=== PATIENT | female | born 1975 | race Caucasian/White ===

== ENCOUNTER 2016-10-22 23:33 | Inpatient (IN) | payer MEDICAID, OTHER ==
[~2016-10-22] VITALS: Ht 175.3 cm; Wt 84.1 kg
[2016-10-23 00:06] LABS: GLUCOSE,POINT OF CARE 95 MG/DL (70-110)
[2016-10-23] MEDS ORDERED: LORazepam 2 MG TABLET PO ONE (00:30)
[2016-10-23 12:14] VITALS: BP 148/93
[2016-10-23] MEDS ORDERED: INFLUENZA VIRUS VACCINE QVS 2016-17 (3YR+)/PF 60 MCG/0.5 ML SYRINGE IM ONE (13:00)
[2016-10-23] MEDS ORDERED: PNEUMOCOCCAL VACCINE POLYVALENT 0.5 ML VIAL [PPSV23] IM ONE (13:00)
[2016-10-23] MEDS: BACITRACIN 28.4 GM OINTMENT TP SCH (18:30)
[2016-10-23] MEDS ORDERED: ACETAMINOPHEN 325 MG TABLET PO PRN (21:30)
[2016-10-24 08:25] VITALS: BP 147/78
[2016-10-24] MEDS: BACITRACIN 28.4 GM OINTMENT TP SCH ×2 (09:03→16:04)
[2016-10-24] MEDS ORDERED: ACETAMINOPHEN 325 MG TABLET PO PRN ×2 (13:00)
[2016-10-24] MEDS ORDERED: IBUPROFEN 400 MG TABLET PO PRN (13:00)
[2016-10-24] MEDS: LORazepam 2 MG TABLET PO PRN (16:04)
[2016-10-25] MEDS: AmLODIPine BESYLATE 2.5 MG TABLET PO SCH (08:52)
[2016-10-25] MEDS: LORazepam 2 MG TABLET PO PRN ×2 (08:52→18:38)
[2016-10-25] MEDS: BACITRACIN 28.4 GM OINTMENT TP SCH ×2 (08:52→16:02)
[2016-10-25 16:03] VITALS: BP 139/82
[2016-10-25] MEDS: RisperiDONE 2 MG TABLET PO SCH (19:45)
[2016-10-25] MEDS: DIVALPROEX SODIUM 500 MG DR TABLET PO SCH (20:09)
[2016-10-25] MEDS: ZOLPIDEM TARTRATE 10 MG TABLET PO PRN (21:02)
[2016-10-26 08:06] VITALS: BP 118/72
[2016-10-26] MEDS: RisperiDONE 2 MG TABLET PO SCH (09:00)
[2016-10-26] MEDS: AmLODIPine BESYLATE 2.5 MG TABLET PO SCH (09:00)
[2016-10-26] MEDS: BACITRACIN 28.4 GM OINTMENT TP SCH ×2 (09:26→16:08)
[2016-10-26] MEDS: LORazepam 2 MG TABLET PO PRN ×2 (09:26→16:08)
[2016-10-26] MEDS: DIVALPROEX SODIUM 500 MG DR TABLET PO SCH ×2 (09:26→16:08)
[2016-10-26 16:08] VITALS: BP_SYST 119; BP_SYST 120; BP_DIAS 75; BP_DIAS 79
[2016-10-26] MEDS: IBUPROFEN 400 MG TABLET PO PRN (16:08)
[2016-10-26 16:24] VITALS: BP 119/79
[2016-10-26] MEDS: ARIPiprazole 15 MG TABLET PO SCH (20:07)
[2016-10-26] MEDS: ZOLPIDEM TARTRATE 10 MG TABLET PO PRN (21:00)
[2016-10-27] MEDS: DIVALPROEX SODIUM 500 MG DR TABLET PO SCH ×2 (08:12→16:08)
[2016-10-27] MEDS: AmLODIPine BESYLATE 2.5 MG TABLET PO SCH (08:12)
[2016-10-27] MEDS: LORazepam 2 MG TABLET PO PRN ×2 (08:13→13:15)
[2016-10-27] MEDS: IBUPROFEN 400 MG TABLET PO PRN (08:17)
[2016-10-27] MEDS: BACITRACIN 28.4 GM OINTMENT TP SCH ×2 (08:17→16:08)
[2016-10-27 08:27] VITALS: BP 126/74
[2016-10-27 16:04] VITALS: BP 127/69
[2016-10-27] MEDS: QUEtiapine FUMARATE 100 MG TABLET PO PRN (20:12)
[2016-10-27] MEDS: ARIPiprazole 15 MG TABLET PO SCH (20:12)
[2016-10-27] MEDS: ZOLPIDEM TARTRATE 10 MG TABLET PO PRN (21:00)
[2016-10-28] MEDS ORDERED: POTASSIUM CHLORIDE 20 MEQ ER TABLET PO ONE (08:00)
[2016-10-28] MEDS: LORazepam 2 MG TABLET PO PRN ×4 (09:09→22:09)
[2016-10-28] MEDS: QUEtiapine FUMARATE 100 MG TABLET PO PRN ×2 (09:09→21:49)
[2016-10-28] MEDS: DIVALPROEX SODIUM 500 MG DR TABLET PO SCH ×2 (09:09→17:00)
[2016-10-28] MEDS: BACITRACIN 28.4 GM OINTMENT TP SCH ×2 (09:10→17:00)
[2016-10-28] MEDS: AmLODIPine BESYLATE 2.5 MG TABLET PO SCH (09:13)
[2016-10-28 16:02] VITALS: BP 134/76
[2016-10-28] MEDS: ZOLPIDEM TARTRATE 10 MG TABLET PO PRN (20:18)
[2016-10-28] MEDS: ARIPiprazole 15 MG TABLET PO SCH (20:18)
[2016-10-29 05:34] VITALS: BP 141/85
[2016-10-29 08:08] VITALS: BP 130/90
[2016-10-29] MEDS: BACITRACIN 28.4 GM OINTMENT TP SCH ×2 (09:04→16:57)
[2016-10-29] MEDS: AmLODIPine BESYLATE 2.5 MG TABLET PO SCH (09:04)
[2016-10-29] MEDS: DIVALPROEX SODIUM 500 MG DR TABLET PO SCH ×2 (09:04→16:19)
[2016-10-29] MEDS: LORazepam 2 MG TABLET PO PRN ×3 (09:07→17:09)
[2016-10-29] MEDS: ALBUTEROL SULFATE HFA 90 MCG/PUFF 8 GM INHALER IH PRN (14:51)
[2016-10-29 16:00] VITALS: BP 140/97
[2016-10-29] MEDS: QUEtiapine FUMARATE 100 MG TABLET PO PRN (16:19)
[2016-10-29] MEDS: ARIPiprazole 15 MG TABLET PO SCH (20:53)
[2016-10-29] MEDS: ZOLPIDEM TARTRATE 10 MG TABLET PO PRN (21:22)
[2016-10-29 21:30] VITALS: BP 135/80
[2016-10-29] MEDS: IBUPROFEN 400 MG TABLET PO PRN (21:32)
[2016-10-30 03:06] VITALS: BP 131/74
[2016-10-30] MEDS: LORazepam 2 MG TABLET PO PRN ×4 (03:25→17:47)
[2016-10-30] MEDS: AmLODIPine BESYLATE 2.5 MG TABLET PO SCH (08:12)
[2016-10-30] MEDS: BACITRACIN 28.4 GM OINTMENT TP SCH ×2 (08:12→16:07)
[2016-10-30] MEDS: DIVALPROEX SODIUM 500 MG DR TABLET PO SCH ×2 (08:12→16:07)
[2016-10-30 08:28] VITALS: BP 140/74
[2016-10-30] MEDS: QUEtiapine FUMARATE 100 MG TABLET PO PRN (15:48)
[2016-10-30 16:00] VITALS: BP 140/88
[2016-10-30] MEDS: ALBUTEROL SULFATE HFA 90 MCG/PUFF 8 GM INHALER IH PRN (16:00)
[2016-10-30] MEDS: ARIPiprazole 15 MG TABLET PO SCH (20:09)
[2016-10-30] MEDS: ZOLPIDEM TARTRATE 10 MG TABLET PO PRN (21:05)
[2016-10-31 08:14] VITALS: BP 144/88
[2016-10-31] MEDS: QUEtiapine FUMARATE 100 MG TABLET PO PRN (08:45)
[2016-10-31] MEDS: AmLODIPine BESYLATE 2.5 MG TABLET PO SCH (08:45)
[2016-10-31] MEDS: LORazepam 2 MG TABLET PO PRN ×3 (08:45→23:47)
[2016-10-31] MEDS: DIVALPROEX SODIUM 500 MG DR TABLET PO SCH ×2 (08:45→16:14)
[2016-10-31] MEDS: BACITRACIN 28.4 GM OINTMENT TP SCH ×2 (09:22→16:15)
[2016-10-31 16:00] VITALS: BP 116/74
[2016-10-31] MEDS: ARIPiprazole 15 MG TABLET PO SCH (21:00)
[2016-10-31] MEDS: ZOLPIDEM TARTRATE 10 MG TABLET PO PRN (23:47)
[2016-11-01 04:05] VITALS: BP 146/82
[2016-11-01] MEDS: IBUPROFEN 400 MG TABLET PO PRN (04:05)
[2016-11-01 08:00] VITALS: BP 142/82
[2016-11-01] MEDS: BACITRACIN 28.4 GM OINTMENT TP SCH ×2 (08:25→16:11)
[2016-11-01] MEDS: AmLODIPine BESYLATE 2.5 MG TABLET PO SCH (08:25)
[2016-11-01] MEDS: DIVALPROEX SODIUM 500 MG DR TABLET PO SCH ×3 (08:25→17:00)
[2016-11-01] MEDS: LORazepam 2 MG TABLET PO PRN ×3 (08:30→18:29)
[2016-11-01 08:45] LABS: BASOPHILS % (AUTO) 0.6 % (0.0-2.0); EOSINOPHILS % (AUTO) 2.2 % (1.0-6.0); HEMATOCRIT 40.5 % (36-46); HEMOGLOBIN 13.1 g/dL (12.0-16.0); LYMPHOCYTES # (AUTO) 2.5 K/uL (1.0-4.8); LYMPHOCYTES % (AUTO) 28.5 % (22.0-44.0); MEAN CORPUSCULAR HEMOGLOBIN 26.7 pg (26.0-34.0); MEAN CORPUSCULAR HGB CONC 32.2 G/dL (31.0-37.0); MEAN CORPUSCULAR VOLUME 83 fL (80-100); MONOCYTES # (AUTO) 0.7 K/uL (0.1-1.0); MONOCYTES % (AUTO) 8.4 % (2.0-9.0); NEUTROPHILS # (AUTO) 5.3 K/uL (1.8-7.7); NEUTROPHILS % (AUTO) 60.3 % (40.0-70.0); PLATELET COUNT (AUTO) 273 K/uL (150-450); RED CELL DISTRIBUTION WIDTH 13.8 % (11.5-14.5); WHITE BLOOD COUNT (AUTO) 8.7 K/uL (4.5-11.0)
[2016-11-01] MEDS ORDERED: LORazepam 2 MG/ML VIAL IM ONE (08:45)
[2016-11-01] MEDS ORDERED: DiphenhydrAMINE HCL 50 MG/ML VIAL IM ONE (08:45)
[2016-11-01] MEDS ORDERED: HALOPERIDOL LACTATE 5 MG/ML VIAL IM ONE (08:45)
[2016-11-01 09:32] LABS: HEMOGLOBIN A1C 5.4 % (4.5-6.2)
[2016-11-01 09:52] LABS: ALANINE AMINOTRANSFERASE 16 U/L (12-78); ALBUMIN 3.1 g/dL (3.4-5.0); ANION GAP 8 mmol/L (8-16); ASPARTATE AMINOTRANSFERASE 12 U/L (15-37); BILIRUBIN,TOTAL 0.2 mg/dL (0.1-1.0); CALCIUM, TOTAL 8.6 mg/dL (8.8-10.5); CARBON DIOXIDE 29 mmol/L (22-29); CHLORIDE 104 mmol/L (98-107); CHOL/HDL RATIO 4.3 (3.9-5.7); CREATININE 0.76 mg/dL (0.60-1.30); GLOMERULAR FILTR. RATE CALC > 60 mL/min (>60); POTASSIUM 4.3 mmol/L (3.5-5.1); SODIUM SERUM 141 mmol/L (136-145); TOTAL PROTEIN, SERUM 7.1 g/dL (6.4-8.2); UREA NITROGEN, BLOOD 25 mg/dL (7-18); VALPROIC ACID 42 mcg/mL (50-100)
[2016-11-01 13:42] VITALS: BP 116/80
[2016-11-01 16:04] VITALS: BP 125/83
[2016-11-01] MEDS: ARIPiprazole 15 MG TABLET PO SCH (20:56)
[2016-11-02] MEDS: LORazepam 2 MG TABLET PO PRN ×4 (04:00→20:07)
[2016-11-02 05:16] VITALS: BP 133/79
[2016-11-02 08:01] VITALS: BP 134/80
[2016-11-02] MEDS: DIVALPROEX SODIUM 500 MG DR TABLET PO SCH ×3 (08:28→16:15)
[2016-11-02] MEDS: AmLODIPine BESYLATE 2.5 MG TABLET PO SCH (08:28)
[2016-11-02] MEDS: BACITRACIN 28.4 GM OINTMENT TP SCH ×2 (08:28→16:15)
[2016-11-02] MEDS: ARIPiprazole 15 MG TABLET PO SCH (20:07)
[2016-11-03 02:43] VITALS: BP 130/76
[2016-11-03] MEDS: AmLODIPine BESYLATE 2.5 MG TABLET PO SCH (08:07)
[2016-11-03] MEDS: DIVALPROEX SODIUM 500 MG DR TABLET PO SCH ×2 (08:07→13:07)
[2016-11-03 08:16] VITALS: BP 123/70
[2016-11-03] MEDS: LORazepam 2 MG TABLET PO PRN (08:16)
[2016-11-03 09:05] VITALS: BP 118/74
[2016-11-03] MEDS: IBUPROFEN 400 MG TABLET PO PRN (09:05)
[2016-11-03] MEDS ORDERED: DIVA500T35 PO (12:31)
[2016-11-03] MEDS ORDERED: ARIP15TA3 PO (12:34)
[2016-11-03] MEDS ORDERED: AMLO2.5T PO (12:34)
== END 2016-11-03 13:15 | disposition home or self-care (01) | DRG 750 ==
LOC: EMS 23:33 → B3A 10-23 10:46
PROVIDERS: ADMIT Psychiatry & Neurology Psychiatry; ATTEND Psychiatry & Neurology Psychiatry
DX: F25.9 Schizoaffective disorder, unspecified (principal); E11.9 Type 2 diabetes mellitus without complications; I10 Essential (primary) hypertension; E03.9 Hypothyroidism, unspecified; J45.909 Unspecified asthma, uncomplicated; F17.210 Nicotine dependence, cigarettes, uncomplicated; Z88.8 Allergy status to other drugs, medicaments and biological substances; Z28.21 Immunization not carried out because of patient refusal
CPT/HCPCS: 82962; 83036; 84443; 90471; 99285; J1200; J1630; J2060; J3535

== ENCOUNTER 2016-10-31 18:39 | Emergency (ER) | payer MEDICAID, OTHER ==
[~2016-10-31] VITALS: Ht 175.3 cm; Wt 75.0 kg
[2016-10-31 19:36] LABS: GLUCOSE,POINT OF CARE 56 MG/DL (70-110)
[2016-10-31 20:56] LABS: GLUCOSE COMMENT 1 Doctor Notified; GLUCOSE,POINT OF CARE 107 MG/DL (70-110)
[2016-10-31 21:29] VITALS: BP 122/62
== END 2016-10-31 22:22 | disposition home or self-care (01) ==
LOC: EEVIPCON 18:40 → EMS 18:40
DX: R06.00 Dyspnea, unspecified (principal); F25.9 Schizoaffective disorder, unspecified; F43.20 Adjustment disorder, unspecified; F41.9 Anxiety disorder, unspecified; E11.9 Type 2 diabetes mellitus without complications; J45.909 Unspecified asthma, uncomplicated; E05.90 Thyrotoxicosis, unspecified without thyrotoxic crisis or storm; F12.90 Cannabis use, unspecified, uncomplicated; F15.90 Other stimulant use, unspecified, uncomplicated; F17.210 Nicotine dependence, cigarettes, uncomplicated; Z88.8 Allergy status to other drugs, medicaments and biological substances
CPT/HCPCS: 82962; 99283; 99406

== ENCOUNTER 2016-11-09 11:26 | Inpatient (IN) | payer MEDICAID, OTHER ==
[~2016-11-09] VITALS: Ht 175.3 cm; Wt 89.1 kg
[~2016-11-09 11:26] MED LIST: AMLO2.5T PO; ARIP15TA3 PO; DIVA500T35 PO
[2016-11-09] MEDS ORDERED: LORazepam 2 MG/ML VIAL IM ONE (11:45)
[2016-11-09] MEDS ORDERED: HALOPERIDOL LACTATE 5 MG/ML VIAL IM ONE (11:45)
[2016-11-09] MEDS ORDERED: DiphenhydrAMINE HCL 50 MG/ML VIAL IM ONE (11:45)
[2016-11-09] MEDS ORDERED: CLON.5 PO (11:52)
[2016-11-09 12:16] LABS: BASOPHILS # (AUTO) 0.03 K/uL (0.00-0.20); BASOPHILS % (AUTO) 0.4 % (0.0-2.0); EOSINOPHILS # (AUTO) 0.13 K/uL (0.00-0.70); HEMATOCRIT 34.1 % (36-46); HEMOGLOBIN 11.5 g/dL (12.0-16.0); LYMPHOCYTES # (AUTO) 2.1 K/uL (1.0-4.8); LYMPHOCYTES % (AUTO) 27.2 % (22.0-44.0); MEAN CORPUSCULAR HEMOGLOBIN 27.5 pg (26.0-34.0); MEAN CORPUSCULAR HGB CONC 33.7 G/dL (31.0-37.0); MEAN CORPUSCULAR VOLUME 81 fL (80-100); MONOCYTES # (AUTO) 0.8 K/uL (0.1-1.0); MONOCYTES % (AUTO) 10.3 % (2.0-9.0); NEUTROPHILS # (AUTO) 4.8 K/uL (1.8-7.7); NEUTROPHILS % (AUTO) 60.5 % (40.0-70.0); PLATELET COUNT (AUTO) 255 K/uL (150-450); RED CELL DISTRIBUTION WIDTH 15.1 % (11.5-14.5); WHITE BLOOD COUNT (AUTO) 7.9 K/uL (4.5-11.0)
[2016-11-09 12:17] LABS: GLUCOSE,POINT OF CARE 76 MG/DL (70-110)
[2016-11-09 12:35] LABS: ANION GAP 6 mmol/L (8-16); CALCIUM, TOTAL 8.3 mg/dL (8.8-10.5); CARBON DIOXIDE 28 mmol/L (22-29); CHLORIDE 105 mmol/L (98-107); CREATININE 0.77 mg/dL (0.60-1.30); GLOMERULAR FILTR. RATE CALC > 60 mL/min (>60); POTASSIUM 3.6 mmol/L (3.5-5.1); SODIUM SERUM 139 mmol/L (136-145); UREA NITROGEN, BLOOD 11 mg/dL (7-18)
[2016-11-09 12:41] LABS: ALANINE AMINOTRANSFERASE 21 U/L (12-78); ALBUMIN 3.2 g/dL (3.4-5.0); ASPARTATE AMINOTRANSFERASE 30 U/L (15-37); BILIRUBIN,TOTAL 0.3 mg/dL (0.1-1.0); TOTAL PROTEIN, SERUM 6.9 g/dL (6.4-8.2); VALPROIC ACID 3 mcg/mL (50-100)
[2016-11-09] MEDS: DIVALPROEX SODIUM 500 MG DR TABLET PO SCH ×2 (16:49→17:00)
[2016-11-09] MEDS: LORazepam 2 MG TABLET PO PRN (17:49)
[2016-11-09 17:56] VITALS: BP 126/84
[2016-11-09] MEDS ORDERED: PNEUMOCOCCAL VACCINE POLYVALENT 0.5 ML VIAL [PPSV23] IM ONE (18:00)
[2016-11-09] MEDS ORDERED: INFLUENZA VIRUS VACCINE QVS 2016-17 (3YR+)/PF 60 MCG/0.5 ML SYRINGE IM ONE (18:00)
[2016-11-09] MEDS: ARIPiprazole 15 MG TABLET PO SCH (20:32)
[2016-11-10 06:00] VITALS: BP 128/86
[2016-11-10] MEDS: DIVALPROEX SODIUM 500 MG DR TABLET PO SCH ×3 (09:00→16:44)
[2016-11-10] MEDS: LORazepam 2 MG TABLET PO PRN ×2 (10:44→16:24)
[2016-11-10] MEDS ORDERED: ACETAMINOPHEN 325 MG TABLET PO PRN (19:45)
[2016-11-10] MEDS: ARIPiprazole 15 MG TABLET PO SCH (20:36)
[2016-11-10] MEDS: ZOLPIDEM TARTRATE 10 MG TABLET PO PRN (22:12)
[2016-11-11 01:08] VITALS: BP 118/64
[2016-11-11] MEDS: LORazepam 2 MG TABLET PO PRN ×4 (01:11→17:52)
[2016-11-11] MEDS: IBUPROFEN 400 MG TABLET PO PRN (06:00)
[2016-11-11] MEDS: DIVALPROEX SODIUM 500 MG DR TABLET PO SCH ×3 (09:00→16:46)
[2016-11-11 09:16] VITALS: BP 118/71
[2016-11-11 09:57] LABS: CHOL/HDL RATIO 3.9 (3.9-5.7); THYROID STIMULATING HORMONE 2.76 uIU/mL (0.36-3.74)
[2016-11-11 10:09] LABS: HEMOGLOBIN A1C 5.8 % (4.5-6.2)
[2016-11-11] MEDS ORDERED: CloZAPine 25 MG TABLET PO SCH (10:15)
[2016-11-11 17:32] VITALS: BP 146/98
[2016-11-11] MEDS: ARIPiprazole 15 MG TABLET PO SCH (20:50)
[2016-11-11] MEDS: ZOLPIDEM TARTRATE 10 MG TABLET PO PRN (21:09)
[2016-11-12 00:59] VITALS: BP 136/72
[2016-11-12] MEDS: LORazepam 2 MG TABLET PO PRN ×3 (08:07→17:03)
[2016-11-12] MEDS: DIVALPROEX SODIUM 500 MG DR TABLET PO SCH ×3 (08:08→17:00)
[2016-11-12 08:20] VITALS: BP 129/82
[2016-11-12] MEDS: IBUPROFEN 400 MG TABLET PO PRN (14:21)
[2016-11-12 14:22] VITALS: BP 124/78
[2016-11-12] MEDS: ARIPiprazole 15 MG TABLET PO SCH (20:52)
[2016-11-13 02:16] VITALS: BP 138/78
[2016-11-13] MEDS: IBUPROFEN 400 MG TABLET PO PRN ×3 (02:18→19:22)
[2016-11-13] MEDS: DIVALPROEX SODIUM 500 MG DR TABLET PO SCH ×3 (08:52→17:00)
[2016-11-13] MEDS: LORazepam 2 MG TABLET PO PRN ×2 (08:52→15:06)
[2016-11-13] MEDS ORDERED: CloZAPine 25 MG TABLET PO SCH ×2 (09:00→21:00)
[2016-11-13 10:08] VITALS: BP 120/74
[2016-11-13 16:03] VITALS: BP 134/82
[2016-11-13] MEDS: ARIPiprazole 15 MG TABLET PO SCH (20:00)
[2016-11-13] MEDS: ZOLPIDEM TARTRATE 10 MG TABLET PO PRN (20:18)
[2016-11-14 01:50] VITALS: BP 138/75
[2016-11-14] MEDS: ACETAMINOPHEN 325 MG TABLET PO PRN ×2 (01:52→17:17)
[2016-11-14] MEDS: LORazepam 2 MG TABLET PO PRN ×3 (01:52→16:08)
[2016-11-14] MEDS: IBUPROFEN 400 MG TABLET PO PRN (06:54)
[2016-11-14 08:01] VITALS: BP 132/63
[2016-11-14] MEDS ORDERED: CloZAPine 25 MG TABLET PO SCH ×2 (09:00→21:00)
[2016-11-14] MEDS: DIVALPROEX SODIUM 500 MG DR TABLET PO SCH ×3 (09:00→16:08)
[2016-11-14 16:06] VITALS: BP 120/60
[2016-11-14 17:02] VITALS: BP 126/25
[2016-11-14] MEDS: QUEtiapine FUMARATE 100 MG TABLET PO PRN (18:03)
[2016-11-14] MEDS: ARIPiprazole 15 MG TABLET PO SCH (20:14)
[2016-11-15 00:53] VITALS: BP 141/86
[2016-11-15] MEDS: IBUPROFEN 400 MG TABLET PO PRN ×2 (00:57→09:39)
[2016-11-15] MEDS: LORazepam 2 MG TABLET PO PRN ×2 (05:50→14:04)
[2016-11-15] MEDS: ACETAMINOPHEN 325 MG TABLET PO PRN (05:50)
[2016-11-15 08:51] VITALS: BP 126/78
[2016-11-15] MEDS: DIVALPROEX SODIUM 500 MG DR TABLET PO SCH ×3 (08:57→17:00)
[2016-11-15] MEDS ORDERED: CloZAPine 25 MG TABLET PO SCH (09:00)
[2016-11-15 09:40] VITALS: BP 120/80
[2016-11-15] MEDS: QUEtiapine FUMARATE 100 MG TABLET PO PRN ×2 (09:40→16:46)
[2016-11-15] MEDS: ARIPiprazole 15 MG TABLET PO SCH (20:07)
[2016-11-15] MEDS: ZOLPIDEM TARTRATE 10 MG TABLET PO PRN (21:07)
[2016-11-16 05:57] VITALS: BP 133/60
[2016-11-16] MEDS: ACETAMINOPHEN 325 MG TABLET PO PRN (05:57)
[2016-11-16] MEDS: DIVALPROEX SODIUM 500 MG DR TABLET PO SCH ×3 (08:17→17:00)
[2016-11-16 09:02] VITALS: BP 136/79
[2016-11-16] MEDS: LORazepam 2 MG TABLET PO PRN ×2 (10:31→16:44)
[2016-11-16 16:12] VITALS: BP 127/70
[2016-11-16] MEDS: IBUPROFEN 400 MG TABLET PO PRN (16:45)
[2016-11-16] MEDS: QUEtiapine FUMARATE 100 MG TABLET PO PRN (16:45)
[2016-11-16 16:46] VITALS: BP 121/64
[2016-11-16] MEDS: ARIPiprazole 15 MG TABLET PO SCH (20:35)
[2016-11-16] MEDS: ZOLPIDEM TARTRATE 10 MG TABLET PO PRN (21:09)
[2016-11-17 03:34] VITALS: BP 125/78
[2016-11-17] MEDS: IBUPROFEN 400 MG TABLET PO PRN (03:43)
[2016-11-17] MEDS: QUEtiapine FUMARATE 100 MG TABLET PO PRN ×2 (04:51→16:17)
[2016-11-17] MEDS: DIVALPROEX SODIUM 500 MG DR TABLET PO SCH ×3 (08:02→16:02)
[2016-11-17 08:50] VITALS: BP 154/72
[2016-11-17] MEDS ORDERED: CloZAPine 25 MG TABLET PO SCH (09:00)
[2016-11-17] MEDS: LORazepam 2 MG TABLET PO PRN ×2 (10:17→16:07)
[2016-11-17] MEDS: ACETAMINOPHEN 325 MG TABLET PO PRN (10:44)
[2016-11-17] MEDS ORDERED: HALOPERIDOL LACTATE 5 MG/ML VIAL IM ONE (10:45)
[2016-11-17] MEDS ORDERED: DiphenhydrAMINE HCL 50 MG/ML VIAL IM ONE (10:45)
[2016-11-17] MEDS ORDERED: LORazepam 2 MG/ML VIAL IM ONE (10:45)
[2016-11-17] MEDS ORDERED: LORazepam 2 MG/ML VIAL ONE (10:47)
[2016-11-17] MEDS ORDERED: DiphenhydrAMINE HCL 50 MG/ML VIAL ONE (10:48)
[2016-11-17] MEDS ORDERED: HALOPERIDOL LACTATE 5 MG/ML VIAL ONE (10:48)
[2016-11-17 11:30] VITALS: BP 136/76
[2016-11-17] MEDS: ARIPiprazole 15 MG TABLET PO SCH (20:18)
[2016-11-17] MEDS: ZOLPIDEM TARTRATE 10 MG TABLET PO PRN (20:59)
[2016-11-17] MEDS ORDERED: CloZAPine 100 MG TABLET PO SCH (21:00)
[2016-11-18 00:28] VITALS: BP 100/61
[2016-11-18] MEDS: IBUPROFEN 400 MG TABLET PO PRN (00:30)
[2016-11-18] MEDS: QUEtiapine FUMARATE 100 MG TABLET PO PRN ×2 (04:17→16:12)
[2016-11-18] MEDS: LORazepam 2 MG TABLET PO PRN ×3 (04:17→16:12)
[2016-11-18 04:19] VITALS: BP 121/71
[2016-11-18] MEDS: DIVALPROEX SODIUM 500 MG DR TABLET PO SCH ×3 (09:00→16:12)
[2016-11-18] MEDS ORDERED: CloZAPine 25 MG TABLET PO SCH (09:00)
[2016-11-18] MEDS ORDERED: HALOPERIDOL LACTATE 5 MG/ML VIAL ONE (10:54)
[2016-11-18] MEDS ORDERED: LORazepam 2 MG/ML VIAL ONE (10:54)
[2016-11-18] MEDS ORDERED: DiphenhydrAMINE HCL 50 MG/ML VIAL ONE (10:54)
[2016-11-18] MEDS ORDERED: HALOPERIDOL LACTATE 5 MG/ML VIAL IM ONE (11:30)
[2016-11-18] MEDS ORDERED: LORazepam 2 MG/ML VIAL IM ONE (11:30)
[2016-11-18] MEDS ORDERED: DiphenhydrAMINE HCL 50 MG/ML VIAL IM ONE (11:30)
[2016-11-18 16:51] VITALS: BP 134/73
[2016-11-18] MEDS: ARIPiprazole 15 MG TABLET PO SCH (20:31)
[2016-11-18] MEDS ORDERED: CloZAPine 100 MG TABLET PO SCH (21:00)
[2016-11-19 01:55] VITALS: BP 131/87
[2016-11-19] MEDS: IBUPROFEN 400 MG TABLET PO PRN (01:56)
[2016-11-19] MEDS: ZOLPIDEM TARTRATE 10 MG TABLET PO PRN ×2 (01:56→20:16)
[2016-11-19 06:45] VITALS: BP 128/82
[2016-11-19] MEDS: LORazepam 2 MG TABLET PO PRN ×2 (06:46→16:19)
[2016-11-19] MEDS ORDERED: CloZAPine 25 MG TABLET PO SCH (09:00)
[2016-11-19] MEDS: QUEtiapine FUMARATE 100 MG TABLET PO PRN ×2 (09:07→16:19)
[2016-11-19] MEDS: DIVALPROEX SODIUM 500 MG DR TABLET PO SCH ×3 (09:07→16:19)
[2016-11-19 18:14] VITALS: BP 127/70
[2016-11-19] MEDS: ARIPiprazole 15 MG TABLET PO SCH (20:16)
[2016-11-19] MEDS ORDERED: CloZAPine 100 MG TABLET PO SCH (21:00)
[2016-11-20 03:28] VITALS: BP 146/88
[2016-11-20] MEDS: IBUPROFEN 400 MG TABLET PO PRN (03:30)
[2016-11-20 05:30] VITALS: BP 145/86
[2016-11-20] MEDS: LORazepam 2 MG TABLET PO PRN ×2 (05:32→15:50)
[2016-11-20 08:31] VITALS: BP 132/70
[2016-11-20] MEDS: DIVALPROEX SODIUM 500 MG DR TABLET PO SCH ×3 (09:00→16:53)
[2016-11-20] MEDS ORDERED: CloZAPine 100 MG TABLET PO SCH (09:00)
[2016-11-20] MEDS: QUEtiapine FUMARATE 100 MG TABLET PO PRN ×2 (09:20→16:53)
[2016-11-20] MEDS: ACETAMINOPHEN 325 MG TABLET PO PRN (09:20)
[2016-11-20 16:25] VITALS: BP 125/90
[2016-11-20] MEDS: ARIPiprazole 15 MG TABLET PO SCH (20:25)
[2016-11-20] MEDS: ZOLPIDEM TARTRATE 10 MG TABLET PO PRN (21:02)
[2016-11-21 00:01] VITALS: BP 124/90
[2016-11-21] MEDS: QUEtiapine FUMARATE 100 MG TABLET PO PRN ×3 (00:03→14:30)
[2016-11-21 05:47] VITALS: BP 135/63
[2016-11-21] MEDS: LORazepam 2 MG TABLET PO PRN ×3 (05:49→16:12)
[2016-11-21] MEDS: IBUPROFEN 400 MG TABLET PO PRN (06:04)
[2016-11-21 08:29] VITALS: BP 124/78
[2016-11-21] MEDS: DIVALPROEX SODIUM 500 MG DR TABLET PO SCH ×3 (08:38→18:04)
[2016-11-21 16:28] VITALS: BP 120/65
[2016-11-21] MEDS: ARIPiprazole 15 MG TABLET PO SCH (20:30)
[2016-11-21] MEDS: OLANZapine 10 MG RAPDIS TABLET PO SCH (20:30)
[2016-11-21] MEDS: ZOLPIDEM TARTRATE 10 MG TABLET PO PRN (20:30)
[2016-11-21] MEDS ORDERED: OLANZapine 10 MG TABLET PO SCH (21:00)
[2016-11-22 00:30] VITALS: BP 130/63
[2016-11-22] MEDS: IBUPROFEN 400 MG TABLET PO PRN ×2 (00:31→17:58)
[2016-11-22] MEDS: QUEtiapine FUMARATE 100 MG TABLET PO PRN ×3 (00:31→17:57)
[2016-11-22] MEDS: DIVALPROEX SODIUM 500 MG DR TABLET PO SCH ×3 (08:20→16:05)
[2016-11-22] MEDS: LORazepam 2 MG TABLET PO PRN ×2 (08:23→16:05)
[2016-11-22 08:39] VITALS: BP 121/69
[2016-11-22] MEDS ORDERED: CloZAPine 25 MG TABLET PO SCH (09:00)
[2016-11-22 17:58] VITALS: BP 124/67
[2016-11-22] MEDS: OLANZapine 10 MG RAPDIS TABLET PO SCH (20:32)
[2016-11-22] MEDS: ARIPiprazole 15 MG TABLET PO SCH (20:32)
[2016-11-22] MEDS ORDERED: CloZAPine 100 MG TABLET PO SCH (21:00)
[2016-11-22] MEDS: ZOLPIDEM TARTRATE 10 MG TABLET PO PRN (21:06)
[2016-11-23 06:30] VITALS: BP 120/63
[2016-11-23 08:07] VITALS: BP 127/75
[2016-11-23] MEDS: DIVALPROEX SODIUM 500 MG DR TABLET PO SCH ×3 (08:36→16:03)
[2016-11-23] MEDS ORDERED: CloZAPine 25 MG TABLET PO SCH (09:00)
[2016-11-23] MEDS: QUEtiapine FUMARATE 100 MG TABLET PO PRN (09:50)
[2016-11-23] MEDS: LORazepam 2 MG TABLET PO PRN ×2 (09:50→16:57)
[2016-11-23] MEDS: ACETAMINOPHEN 325 MG TABLET PO PRN (09:50)
[2016-11-23 16:22] VITALS: BP 116/69
[2016-11-23] MEDS: IBUPROFEN 400 MG TABLET PO PRN (17:52)
[2016-11-23] MEDS: OLANZapine 10 MG RAPDIS TABLET PO SCH (20:35)
[2016-11-23] MEDS: ARIPiprazole 15 MG TABLET PO SCH (20:35)
[2016-11-23] MEDS ORDERED: CloZAPine 100 MG TABLET PO SCH (21:00)
[2016-11-24 02:08] VITALS: BP 135/78
[2016-11-24] MEDS: IBUPROFEN 400 MG TABLET PO PRN (03:58)
[2016-11-24] MEDS: DIVALPROEX SODIUM 500 MG DR TABLET PO SCH ×2 (07:56→16:33)
[2016-11-24 08:29] VITALS: BP 135/82
[2016-11-24] MEDS ORDERED: CloZAPine 100 MG TABLET PO SCH ×2 (09:00→21:00)
[2016-11-24 16:02] VITALS: BP 140/70
[2016-11-24] MEDS: QUEtiapine FUMARATE 100 MG TABLET PO PRN (16:33)
[2016-11-24] MEDS: LORazepam 2 MG TABLET PO PRN (16:33)
[2016-11-24] MEDS: ARIPiprazole 15 MG TABLET PO SCH (21:09)
[2016-11-24] MEDS: ZOLPIDEM TARTRATE 10 MG TABLET PO PRN (21:09)
[2016-11-24] MEDS: OLANZapine 10 MG RAPDIS TABLET PO SCH (21:09)
[2016-11-25 06:56] VITALS: BP 13/72
[2016-11-25 08:04] VITALS: BP 132/82
[2016-11-25] MEDS: DIVALPROEX SODIUM 500 MG DR TABLET PO SCH ×2 (08:55→16:07)
[2016-11-25] MEDS: LORazepam 2 MG TABLET PO PRN ×2 (09:49→16:11)
[2016-11-25] MEDS: QUEtiapine FUMARATE 100 MG TABLET PO PRN (13:08)
[2016-11-25 16:03] VITALS: BP 125/69
[2016-11-25] MEDS: OLANZapine 10 MG RAPDIS TABLET PO SCH (20:16)
[2016-11-25] MEDS: ARIPiprazole 15 MG TABLET PO SCH (20:16)
[2016-11-25] MEDS: ZOLPIDEM TARTRATE 10 MG TABLET PO PRN (21:04)
[2016-11-26 00:02] VITALS: BP 113/90
[2016-11-26] MEDS: QUEtiapine FUMARATE 100 MG TABLET PO PRN ×3 (00:20→19:16)
[2016-11-26] MEDS: LORazepam 2 MG TABLET PO PRN ×4 (00:20→23:58)
[2016-11-26] MEDS: DIVALPROEX SODIUM 500 MG DR TABLET PO SCH ×2 (08:06→15:58)
[2016-11-26 08:38] VITALS: BP 138/77
[2016-11-26 16:04] VITALS: BP 144/72
[2016-11-26] MEDS: ARIPiprazole 15 MG TABLET PO SCH (20:09)
[2016-11-26] MEDS: OLANZapine 10 MG RAPDIS TABLET PO SCH (20:09)
[2016-11-26] MEDS: ZOLPIDEM TARTRATE 10 MG TABLET PO PRN (21:02)
[2016-11-27 00:25] VITALS: BP 115/74
[2016-11-27] MEDS: LORazepam 2 MG TABLET PO PRN (07:59)
[2016-11-27] MEDS: DIVALPROEX SODIUM 500 MG DR TABLET PO SCH (08:00)
[2016-11-27 08:25] VITALS: BP 122/74
[2016-11-27 10:11] VITALS: BP 120/78
[2016-11-27] MEDS: IBUPROFEN 400 MG TABLET PO PRN (10:11)
[2016-11-27] MEDS ORDERED: OLAN10TA6 PO (11:37)
== END 2016-11-27 15:30 | disposition home or self-care (01) | DRG 750 ==
LOC: EMS 11:28 → EEVIPCON 11:28 → B3A 16:30
PROVIDERS: ADMIT Psychiatry & Neurology Psychiatry; ATTEND Psychiatry & Neurology Psychiatry
DX: F25.9 Schizoaffective disorder, unspecified (principal); E11.9 Type 2 diabetes mellitus without complications; E88.09 Other disorders of plasma-protein metabolism, not elsewhere classified; I10 Essential (primary) hypertension; E03.9 Hypothyroidism, unspecified; D64.9 Anemia, unspecified; F32.9 Major depressive disorder, single episode, unspecified; F17.210 Nicotine dependence, cigarettes, uncomplicated; F41.9 Anxiety disorder, unspecified; J45.909 Unspecified asthma, uncomplicated; Z59.0 Homelessness; Z87.891 Personal history of nicotine dependence; Z88.8 Allergy status to other drugs, medicaments and biological substances; Z71.6 Tobacco abuse counseling; Z71.51 Drug abuse counseling and surveillance of drug abuser; Z28.21 Immunization not carried out because of patient refusal; Z79.84 Long term (current) use of oral hypoglycemic drugs; Z79.51 Long term (current) use of inhaled steroids; Z79.899 Other long term (current) drug therapy
CPT/HCPCS: 82948; 82962; 83036; 84443; 87081; 90471; 96372; 99291; G0480; J1200; J1630; J2060

== ENCOUNTER 2019-07-11 16:10 | Inpatient (IN) | payer MEDICAID ==
[~2019-07-11] VITALS: Ht 172.7 cm; Wt 106.1 kg
[~2019-07-11 16:10] MED LIST changes: -AMLO2.5T PO; +ARIP15TA2 PO; -ARIP15TA3 PO; +DIVA-78 PO; -DIVA500T35 PO; +OLAN10TA6 PO
[2019-07-11] MEDS ORDERED: DiphenhydrAMINE HCL 50 MG/ML VIAL ONE (16:51)
[2019-07-11] MEDS ORDERED: LORazepam 2 MG/ML VIAL ONE (16:51)
[2019-07-11] MEDS ORDERED: HALOPERIDOL LACTATE 5 MG/ML VIAL ONE (16:51)
[2019-07-11] MEDS ORDERED: HALOPERIDOL LACTATE 5 MG/ML VIAL IM ONE (17:30)
[2019-07-11] MEDS ORDERED: ZOLPIDEM TARTRATE 10 MG TABLET PO PRN (17:30)
[2019-07-11] MEDS ORDERED: DiphenhydrAMINE HCL 50 MG/ML VIAL IM ONE (17:30)
[2019-07-11] MEDS ORDERED: LORazepam 2 MG/ML VIAL IM ONE (17:30)
[2019-07-11 18:06] VITALS: BP 140/90
[2019-07-11] MEDS ORDERED: INFLUENZA VIRUS VACCINE QVS 2019-20 (3YR+)/PF 60 MCG/0.5 ML SYRINGE IM ONE (20:15)
[2019-07-12 07:16] VITALS: BP 131/86
[2019-07-12] MEDS ORDERED: LOPERAMIDE HCL 2 MG CAPSULE PO PRN (12:00)
[2019-07-12] MEDS ORDERED: NICOTINE 14 MG/24 HOUR PATCH TD PRN (12:00)
[2019-07-12] MEDS ORDERED: PETROLATUM,WHITE 28 GM JELLY TP PRN (12:00)
[2019-07-12] MEDS ORDERED: ONDANSETRON HCL 4 MG TABLET PO PRN (12:00)
[2019-07-12] MEDS ORDERED: ALBUTEROL SULFATE HFA 90 MCG/PUFF 8 GM INHALER IH PRN (12:00)
[2019-07-12] MEDS ORDERED: ACETAMINOPHEN 325 MG TABLET PO PRN (12:00)
[2019-07-12] MEDS ORDERED: MAGNESIUM HYDROXIDE SUSPENSION 30 ML UDCUP PO PRN (12:00)
[2019-07-12] MEDS ORDERED: MAG HYDROX/AL HYDROX/SIMETH ES 30 ML SUSPENSION UDCUP PO PRN (12:00)
[2019-07-12] MEDS ORDERED: CloNIDine HCL 0.1 MG TABLET PO PRN (12:00)
[2019-07-12] MEDS ORDERED: GuaiFENesin/D-METHORPHAN [SUGAR-FREE] 200-20MG/10 ML SYRUP UDCUP PO PRN (12:00)
[2019-07-12] MEDS ORDERED: DOCUSATE SODIUM 100 MG CAPSULE PO PRN (12:00)
[2019-07-12] MEDS: IBUPROFEN 400 MG TABLET PO PRN (12:37)
[2019-07-12] MEDS: OLANZapine 5 MG RAPDIS TABLET PO SCH (21:20)
[2019-07-13 06:31] VITALS: BP 137/76
[2019-07-13 08:30] VITALS: BP 140/72
[2019-07-13] MEDS: HALOPERIDOL 5 MG TABLET PO PRN ×2 (09:20→16:51)
[2019-07-13 16:29] VITALS: BP 124/68
[2019-07-13] MEDS: LORazepam 2 MG TABLET PO PRN (16:51)
[2019-07-13] MEDS: IBUPROFEN 400 MG TABLET PO PRN (17:01)
[2019-07-13] MEDS: OLANZapine 5 MG RAPDIS TABLET PO SCH (20:39)
[2019-07-14 08:20] VITALS: BP 124/83
[2019-07-14 08:22] LABS: BASOPHILS % (AUTO) 0.5 % (0.0-2.0); EOSINOPHILS % (AUTO) 2.9 % (1.0-6.0); HEMATOCRIT 43.8 % (36-46); HEMOGLOBIN 14.4 g/dL (12.0-16.0); LYMPHOCYTES # (AUTO) 2.2 K/uL (1.0-4.8); LYMPHOCYTES % (AUTO) 31.6 % (22.0-44.0); MEAN CORPUSCULAR HEMOGLOBIN 27.8 pg (26.0-34.0); MEAN CORPUSCULAR VOLUME 84 fL (80-100); MONOCYTES # (AUTO) 0.4 K/uL (0.1-1.0); MONOCYTES % (AUTO) 6.3 % (2.0-9.0); NEUTROPHILS # (AUTO) 4.1 K/uL (1.8-7.7); NEUTROPHILS % (AUTO) 58.7 % (40.0-70.0); PLATELET COUNT (AUTO) 261 K/uL (150-450); RED CELL DISTRIBUTION WIDTH 13.4 % (11.5-14.5)
[2019-07-14 09:12] LABS: HEMOGLOBIN A1C 5.4 % (4.5-6.2)
[2019-07-14 09:17] LABS: ALANINE AMINOTRANSFERASE 17 U/L (12-78); ALBUMIN 3.3 g/dL (3.4-5.0); ALKALINE PHOSPHATASE 66 U/L (46-116); ANION GAP 9 mmol/L (8-16); ASPARTATE AMINOTRANSFERASE 13 U/L (15-37); BILIRUBIN,TOTAL 0.2 mg/dL (0.1-1.0); CALCIUM, TOTAL 8.8 mg/dL (8.8-10.5); CARBON DIOXIDE 27 mmol/L (22-29); CHLORIDE 103 mmol/L (98-107); CHOL/HDL RATIO 5.2 (3.9-5.7); CHOLESTEROL 199 mg/dL (131-200); CREATININE 0.65 mg/dL (0.60-1.30); FREE T4 (FREE THYROXINE) 1.13 ng/dL (0.76-1.46); GLOMERULAR FILTR. RATE CALC > 60 mL/min (>60); GLUCOSE,RANDOM 87 mg/dL (70-110); HDL CHOLESTEROL 38 mg/dL (40-60); LDL CHOL (CALC.) 141 mg/dL (0-130); POTASSIUM 3.9 mmol/L (3.5-5.1); SODIUM SERUM 139 mmol/L (136-145); THYROID STIMULATING HORMONE 1.86 uIU/mL (0.36-3.74); TOTAL PROTEIN, SERUM 7.5 g/dL (6.4-8.2); TRIGLYCERIDES 99 mg/dL (15-150); UREA NITROGEN, BLOOD 14 mg/dL (7-18)
[2019-07-14] MEDS: LORazepam 2 MG TABLET PO PRN (14:34)
[2019-07-14 16:20] VITALS: BP 140/94
[2019-07-14] MEDS: OLANZapine 5 MG RAPDIS TABLET PO SCH (20:21)
[2019-07-15 04:17] VITALS: BP 145/100
[2019-07-15 05:18] VITALS: BP 100/69
[2019-07-15 08:33] VITALS: BP 130/69
[2019-07-15] MEDS: OLANZapine 5 MG RAPDIS TABLET PO SCH (20:43)
[2019-07-16 16:26] VITALS: BP 151/77
[2019-07-16 16:37] VITALS: BP 151/77
[2019-07-16] MEDS: LORazepam 2 MG TABLET PO PRN (18:08)
[2019-07-16 19:34] VITALS: BP 152/64
[2019-07-16] MEDS: AmLODIPine BESYLATE 5 MG TABLET PO SCH (20:05)
[2019-07-16] MEDS: OLANZapine 5 MG RAPDIS TABLET PO SCH (20:28)
[2019-07-17 05:39] VITALS: BP 144/88
[2019-07-17 08:15] VITALS: BP 123/54
[2019-07-17] MEDS: AmLODIPine BESYLATE 5 MG TABLET PO SCH (08:21)
[2019-07-17] MEDS: LORazepam 2 MG TABLET PO PRN (12:21)
[2019-07-17] MEDS ORDERED: OLAN7.5T2 PO (14:10)
[2019-07-17] MEDS ORDERED: AMLO5TAB9 PO (14:10)
== END 2019-07-17 17:00 | disposition home or self-care (01) | DRG 750 ==
LOC: B3A 17:10
PROVIDERS: ATTEND Psychiatry & Neurology Child & Adolescent Psychiatry
DX: F25.0 Schizoaffective disorder, bipolar type (principal); E11.9 Type 2 diabetes mellitus without complications; D64.9 Anemia, unspecified; E03.9 Hypothyroidism, unspecified; E78.5 Hyperlipidemia, unspecified; I10 Essential (primary) hypertension; J45.909 Unspecified asthma, uncomplicated; Z59.0 Homelessness
CPT/HCPCS: 83036; 84439; 84443; J1200; J1630; J2060

== ENCOUNTER 2020-11-16 21:24 | Inpatient (IN) | payer MEDICAID ==
[~2020-11-16] VITALS: Ht 172.7 cm; Wt 106.3 kg
[~2020-11-16 21:24] MED LIST changes: +AMLO-257 PO; -ARIP15TA2 PO; -DIVA-78 PO; -OLAN10TA6 PO; +OLAN7.5T2 PO
[2020-11-16] MEDS: HALOPERIDOL LACTATE 5 MG/ML VIAL IM ONE ×2 (21:45→21:52)
[2020-11-16] MEDS ORDERED: LORazepam 2 MG/ML VIAL IM ONE (21:45)
[2020-11-16] MEDS ORDERED: DiphenhydrAMINE HCL 50 MG/ML VIAL IM ONE (21:45)
[2020-11-16] MEDS ORDERED: CELE200 PO (22:06)
[2020-11-16] MEDS ORDERED: SULF1TAB42 PO (22:06)
[2020-11-16] MEDS ORDERED: MIRT-89 PO (22:06)
[2020-11-16] MEDS ORDERED: IBUP-2070 PO (22:06)
[2020-11-16] MEDS ORDERED: IPRAHFA IH (22:06)
[2020-11-16] MEDS ORDERED: CEPH500C3 PO (22:06)
[2020-11-16] MEDS ORDERED: POLY10DR3 OU (22:06)
[2020-11-16] MEDS ORDERED: ALBU8HFA IH (22:06)
[2020-11-16] MEDS ORDERED: LEVO75 PO (22:06)
[2020-11-16] MEDS ORDERED: BENZ0.5T44 PO (22:06)
[2020-11-16] MEDS ORDERED: HYD25 PO (22:06)
[2020-11-16 22:19] LABS: AMPHET/METH SCREEN,URINE POSITIVE (NEGATIVE); BARBITURATE SCREEN, URINE NEGATIVE (NEGATIVE); BENZODIAZEPINES SCREEN,URINE NEGATIVE (NEGATIVE); CANNABINOID SCREEN,URINE NEGATIVE (NEGATIVE); METHADONE SCREEN, URINE NEGATIVE (NEGATIVE); OPIATE SCREEN,URINE NEGATIVE (NEGATIVE)
[2020-11-16 22:25] LABS: PHENCYCLIDINE SCREEN,URINE NEGATIVE (NEGATIVE)
[2020-11-16 22:36] LABS: COCAINE SCREEN,URINE NEGATIVE (NEGATIVE)
[2020-11-16] MEDS ORDERED: QUEtiapine FUMARATE 100 MG TABLET PO PRN (22:45)
[2020-11-16 22:58] LABS: COVID AG,FIA SOURCE NASOPHARYNGEAL
[2020-11-16 23:07] LABS: APPEARANCE,URINE CLOUDY (CLEAR); BILIRUBIN,URINE NEGATIVE (NEGATIVE); GLUCOSE, URINE (UA) NEGATIVE (NEGATIVE); KETONES,URINE NEGATIVE (NEGATIVE); LEUKOCYTE ESTERASE ,URINE SMALL (NEGATIVE); NITRATE,URINE NEGATIVE (NEGATIVE); OCCULT BLOOD,URINE LARGE (NEGATIVE); PH,URINE 5.5 (5.0-8.0); PROTEIN,URINE NEGATIVE (NEGATIVE); UROBILINOGEN,URINE 0.2 mg/dL (<=1.0)
[2020-11-16 23:13] LABS: BACTERIA,URINE Few /HPF (None Seen); RBC,URINE 26-50 /HPF (0-2); SQUAMOUS EPITHELIAL CELL,UR Many /LPF (None Seen)
[2020-11-17 00:30] LABS: BASOPHILS % (AUTO) 0.6 % (0.0-2.0); EOSINOPHILS % (AUTO) 4.1 % (1.0-6.0); HEMATOCRIT 34.4 % (36-46); HEMOGLOBIN 11.4 g/dL (12.0-16.0); LYMPHOCYTES # (AUTO) 2.1 K/uL (1.0-4.8); LYMPHOCYTES % (AUTO) 37.2 % (22.0-44.0); MEAN CORPUSCULAR HEMOGLOBIN 27.7 pg (26.0-34.0); MEAN CORPUSCULAR HGB CONC 33.1 G/dL (31.0-37.0); MEAN CORPUSCULAR VOLUME 84 fL (80-100); MONOCYTES # (AUTO) 0.5 K/uL (0.1-1.0); MONOCYTES % (AUTO) 9.7 % (2.0-9.0); NEUTROPHILS # (AUTO) 2.7 K/uL (1.8-7.7); NEUTROPHILS % (AUTO) 48.4 % (40.0-70.0); PLATELET COUNT (AUTO) 252 K/uL (150-450); RED BLOOD CELL COUNT(AUTO) 4.11 MIL/uL (4.00-5.20); RED CELL DISTRIBUTION WIDTH 12.9 % (11.5-14.5)
[2020-11-17 00:38] LABS: ANION GAP 7 mmol/L (8-16); CALCIUM, TOTAL 8.6 mg/dL (8.8-10.5); CARBON DIOXIDE 26 mmol/L (22-29); CHLORIDE 104 mmol/L (98-107); CREATININE 0.98 mg/dL (0.60-1.30); GLOMERULAR FILTR. RATE CALC > 60 mL/min (>60); GLUCOSE,RANDOM 103 mg/dL (70-110); POTASSIUM 3.8 mmol/L (3.5-5.1); SODIUM SERUM 137 mmol/L (136-145); UREA NITROGEN, BLOOD 19 mg/dL (7-18)
[2020-11-17 00:49] LABS: ALANINE AMINOTRANSFERASE 12 U/L (12-78); ALBUMIN 2.7 g/dL (3.4-5.0); ALKALINE PHOSPHATASE 83 U/L (46-116); ASPARTATE AMINOTRANSFERASE 12 U/L (15-37); HCG,QUANTITATIVE < 1 mIU/mL (0-6); TOTAL PROTEIN, SERUM 6.5 g/dL (6.4-8.2)
[2020-11-17 00:50] LABS: BILIRUBIN,TOTAL < 0.1 mg/dL (0.1-1.0)
[2020-11-17 02:47] LABS: CHOL/HDL RATIO 3.9 (3.9-5.7); CHOLESTEROL 138 mg/dL (131-200); HDL CHOLESTEROL 35 mg/dL (40-60); LDL CHOL (CALC.) 86 mg/dL (0-130); TRIGLYCERIDES 84 mg/dL (15-150)
[2020-11-17 04:01] VITALS: BP 153/93
[2020-11-17] MEDS ORDERED: INFLUENZA VIRUS VACCINE QVS 2020-21 (6MO+)/PF 60 MCG/0.5 ML SYRINGE IM ONE (05:15)
[2020-11-17] MEDS ORDERED: PNEUMOCOCCAL VACCINE POLYVALENT 0.5 ML VIAL [PPSV23] IM ONE (05:15)
[2020-11-17] MEDS ORDERED: PETROLATUM,WHITE 28 GM JELLY TP PRN (07:45)
[2020-11-17] MEDS ORDERED: DOCUSATE SODIUM 100 MG CAPSULE PO PRN (07:45)
[2020-11-17] MEDS ORDERED: GuaiFENesin/D-METHORPHAN [SUGAR-FREE] 200-20MG/10 ML SYRUP UDCUP PO PRN (07:45)
[2020-11-17] MEDS ORDERED: IBUPROFEN 400 MG TABLET PO PRN (07:45)
[2020-11-17] MEDS ORDERED: CloNIDine HCL 0.1 MG TABLET PO PRN (07:45)
[2020-11-17] MEDS ORDERED: ACETAMINOPHEN 325 MG TABLET PO PRN (07:45)
[2020-11-17] MEDS ORDERED: ALBUTEROL SULFATE HFA 90 MCG/PUFF 8 GM INHALER IH PRN ×2 (07:45)
[2020-11-17] MEDS ORDERED: LOPERAMIDE HCL 2 MG CAPSULE PO PRN (07:45)
[2020-11-17] MEDS ORDERED: NICOTINE 14 MG/24 HOUR PATCH TD PRN (07:45)
[2020-11-17] MEDS ORDERED: ONDANSETRON HCL 4 MG TABLET PO PRN (07:45)
[2020-11-17] MEDS ORDERED: MAGNESIUM HYDROXIDE SUSPENSION 30 ML UDCUP PO PRN (07:45)
[2020-11-17] MEDS ORDERED: IPRATROPIUM BROMIDE HFA 17 MCG/PUFF 12.9 GM INHALER IH PRN (07:45)
[2020-11-17] MEDS ORDERED: MAG HYDROX/AL HYDROX/SIMETH ES 30 ML SUSPENSION UDCUP PO PRN (07:45)
[2020-11-17] MEDS: CELECOXIB 200 MG CAPSULE PO SCH ×2 (12:32→17:00)
[2020-11-17] MEDS: AmLODIPine BESYLATE 5 MG TABLET PO SCH (12:33)
[2020-11-17] MEDS: OLANZapine 10 MG TABLET PO SCH (20:22)
[2020-11-17] MEDS: ZOLPIDEM TARTRATE 10 MG TABLET PO PRN (20:41)
[2020-11-17 20:55] VITALS: BP 148/65
[2020-11-18 00:31] VITALS: BP 136/83
[2020-11-18] MEDS: LEVOTHYROXINE SODIUM 75 MCG TABLET PO SCH (06:46)
[2020-11-18] MEDS: CELECOXIB 200 MG CAPSULE PO SCH ×2 (06:47→20:26)
[2020-11-18 08:12] VITALS: BP 143/77
[2020-11-18] MEDS: AmLODIPine BESYLATE 5 MG TABLET PO SCH (08:30)
[2020-11-18] MEDS: OLANZapine 10 MG TABLET PO SCH (20:26)
[2020-11-18] MEDS: ZOLPIDEM TARTRATE 10 MG TABLET PO PRN (21:43)
[2020-11-19 06:23] VITALS: BP 125/71
[2020-11-19] MEDS: CELECOXIB 200 MG CAPSULE PO SCH ×2 (06:27→16:29)
[2020-11-19] MEDS: LEVOTHYROXINE SODIUM 75 MCG TABLET PO SCH (06:27)
[2020-11-19] MEDS: AmLODIPine BESYLATE 5 MG TABLET PO SCH (08:18)
[2020-11-19 10:09] VITALS: BP 163/99
[2020-11-19 13:30] VITALS: BP 160/93
[2020-11-19 14:59] VITALS: BP 140/75
[2020-11-19 16:08] VITALS: BP 141/83
[2020-11-19] MEDS: LORazepam 2 MG TABLET PO PRN (19:07)
[2020-11-19] MEDS: CEPHALEXIN MONOHYDRATE 500 MG CAPSULE PO SCH (21:15)
[2020-11-19] MEDS: OLANZapine 7.5 MG TABLET PO SCH (21:15)
[2020-11-20 00:21] VITALS: BP 134/81
[2020-11-20] MEDS: LEVOTHYROXINE SODIUM 75 MCG TABLET PO SCH (06:27)
[2020-11-20] MEDS: CELECOXIB 200 MG CAPSULE PO SCH ×2 (06:27→16:24)
[2020-11-20] MEDS: AmLODIPine BESYLATE 5 MG TABLET PO SCH (09:00)
[2020-11-20] MEDS: CEPHALEXIN MONOHYDRATE 500 MG CAPSULE PO SCH ×3 (09:00→16:24)
[2020-11-20] MEDS: LORazepam 2 MG TABLET PO PRN (16:31)
[2020-11-20] MEDS: OLANZapine 7.5 MG TABLET PO SCH (20:07)
[2020-11-20] MEDS: ZOLPIDEM TARTRATE 10 MG TABLET PO PRN (20:07)
[2020-11-21 00:37] VITALS: BP 126/82
[2020-11-21] MEDS: CELECOXIB 200 MG CAPSULE PO SCH ×2 (06:48→16:00)
[2020-11-21] MEDS: LEVOTHYROXINE SODIUM 75 MCG TABLET PO SCH (06:54)
[2020-11-21 08:18] VITALS: BP 146/105
[2020-11-21] MEDS: CEPHALEXIN MONOHYDRATE 500 MG CAPSULE PO SCH ×3 (08:29→16:00)
[2020-11-21] MEDS: LORazepam 2 MG TABLET PO PRN ×2 (08:31→16:25)
[2020-11-21] MEDS: AmLODIPine BESYLATE 5 MG TABLET PO SCH (08:31)
[2020-11-21 09:00] VITALS: BP 135/90
[2020-11-21 16:07] VITALS: BP 147/79
[2020-11-21 17:25] VITALS: BP 137/91
[2020-11-21] MEDS: OLANZapine 7.5 MG TABLET PO SCH (20:35)
[2020-11-21] MEDS: ZOLPIDEM TARTRATE 10 MG TABLET PO PRN (20:39)
[2020-11-22 00:31] VITALS: BP 126/86
[2020-11-22] MEDS: LEVOTHYROXINE SODIUM 75 MCG TABLET PO SCH (06:53)
[2020-11-22] MEDS: CELECOXIB 200 MG CAPSULE PO SCH (07:05)
[2020-11-22] MEDS: AmLODIPine BESYLATE 5 MG TABLET PO SCH (08:11)
[2020-11-22] MEDS: CEPHALEXIN MONOHYDRATE 500 MG CAPSULE PO SCH ×2 (08:11→12:11)
[2020-11-22] MEDS: LORazepam 2 MG TABLET PO PRN (08:11)
[2020-11-22 08:13] LABS: FREE T4 (FREE THYROXINE) 0.97 ng/dL (0.76-1.46); THYROID STIMULATING HORMONE 4.1 uIU/mL (0.36-3.74)
[2020-11-22] MEDS ORDERED: OLAN7.5T9 PO (08:31)
[2020-11-22 09:59] VITALS: BP 126/98
== END 2020-11-22 12:15 | disposition home or self-care (01) | DRG 885 ==
LOC: EMS 21:24 → B3A 23:00
PROC: 3E0234Z Introduction of Serum, Toxoid and Vaccine into Muscle, Percutaneous Approach (ICD-10-PCS; principal; 2020-11-17)
PROC: 3E02340 Introduction of Influenza Vaccine into Muscle, Percutaneous Approach (ICD-10-PCS; 2020-11-17)
DX: F25.0 Schizoaffective disorder, bipolar type (principal); R45.851 Suicidal ideations; F15.10 Other stimulant abuse, uncomplicated; I10 Essential (primary) hypertension; E11.9 Type 2 diabetes mellitus without complications; E03.9 Hypothyroidism, unspecified; J45.909 Unspecified asthma, uncomplicated; D64.9 Anemia, unspecified; F41.9 Anxiety disorder, unspecified; Z20.822 Contact with and (suspected) exposure to COVID-19; F17.210 Nicotine dependence, cigarettes, uncomplicated; Z91.14 Patient's other noncompliance with medication regimen; Z79.899 Other long term (current) drug therapy; Z23 Encounter for immunization; Z88.8 Allergy status to other drugs, medicaments and biological substances
CPT/HCPCS: 83036; 84439; 84443; 87426; 90686; 90732; 99291; G0480; J1200; J1630; J2060

== ENCOUNTER 2021-01-09 03:05 | Emergency (ER) | payer SELFPAY ==
[~2021-01-09] VITALS: Ht 172.7 cm; Wt 102.0 kg
[~2021-01-09 03:05] MED LIST changes: +CELE200 PO; +LEVO75 PO; -OLAN7.5T2 PO; +OLAN7.5T9 PO
[2021-01-09] MEDS ORDERED: HALOPERIDOL 5 MG TABLET PO ONE (04:30)
[2021-01-09] MEDS ORDERED: LORazepam 2 MG TABLET PO ONE (04:30)
[2021-01-09 09:33] VITALS: BP 149/96
== END 2021-01-09 12:59 | disposition home or self-care (01) ==
LOC: EMS 03:10
DX: F20.9 Schizophrenia, unspecified (principal); F41.9 Anxiety disorder, unspecified; F31.9 Bipolar disorder, unspecified; E11.9 Type 2 diabetes mellitus without complications; F17.210 Nicotine dependence, cigarettes, uncomplicated; F12.90 Cannabis use, unspecified, uncomplicated; F19.90 Other psychoactive substance use, unspecified, uncomplicated; Z88.6 Allergy status to analgesic agent
CPT/HCPCS: 99284; Z7502; Z7610

== ENCOUNTER 2024-02-19 13:03 | Emergency (ER) | payer MEDICAID ==
[~2024-02-19] VITALS: Ht 172.7 cm; Wt 110.0 kg
[~2024-02-19 13:03] MED LIST changes: +OLAN7.5T18 PO; -OLAN7.5T9 PO
[2024-02-19 13:14] VITALS: TEMP 98.4
[2024-02-19 13:56] LABS: GLUCOMETER DEV NAME(LOC) ER.7; GLUCOSE,POINT OF CARE 92 MG/DL (70-110)
[2024-02-19] MEDS ORDERED: AMOX-457 PO (15:11)
[2024-02-19] MEDS: AMOX TR/POT CLAV 875 MG/125 MG TABLET PO ONE (15:12)
[2024-02-19] MEDS: MAALOX/LIDOCAINE/NYSTATIN SUSP 5 ML ORAL.SYG MM ONE (15:13)
[2024-02-19 15:57] VITALS: BP 142/87; PULSE 92; RESP 22
== END 2024-02-19 17:08 | disposition home or self-care (01) ==
LOC: EMS 13:03
DX: K04.7 Periapical abscess without sinus (principal); F15.10 Other stimulant abuse, uncomplicated; F41.9 Anxiety disorder, unspecified; J45.909 Unspecified asthma, uncomplicated; F31.9 Bipolar disorder, unspecified; E11.9 Type 2 diabetes mellitus without complications; F20.9 Schizophrenia, unspecified; F17.210 Nicotine dependence, cigarettes, uncomplicated; F12.90 Cannabis use, unspecified, uncomplicated; Z88.8 Allergy status to other drugs, medicaments and biological substances
CPT/HCPCS: 82962; 99283

== ENCOUNTER 2024-02-19 20:09 | Emergency (ER) | payer MEDICAID ==
[~2024-02-19] VITALS: Ht 172.7 cm; Wt 113.6 kg
[~2024-02-19 20:09] MED LIST changes: +AMOX-457 PO
[2024-02-20 00:17] LABS: BASOPHILS % (AUTO) 0.3 % (0.0-2.0); EOSINOPHILS % (AUTO) 1.9 % (1.0-6.0); HEMATOCRIT 34.3 % (36-46); HEMOGLOBIN 11.4 g/dL (12.0-16.0); LYMPHOCYTES # (AUTO) 2.1 K/uL (1.0-4.8); LYMPHOCYTES % (AUTO) 25.8 % (22.0-44.0); MEAN CORPUSCULAR HEMOGLOBIN 28.2 pg (26.0-34.0); MEAN CORPUSCULAR HGB CONC 33.3 G/dL (31.0-37.0); MEAN CORPUSCULAR VOLUME 85 fL (80-100); MONOCYTES # (AUTO) 0.7 K/uL (0.1-1.0); MONOCYTES % (AUTO) 8.2 % (2.0-9.0); NEUTROPHILS # (AUTO) 5.3 K/uL (1.8-7.7); NEUTROPHILS % (AUTO) 63.8 % (40.0-70.0); PLATELET COUNT (AUTO) 283 K/uL (150-450); RED BLOOD CELL COUNT(AUTO) 4.06 MIL/uL (4.00-5.20); RED CELL DISTRIBUTION WIDTH 13.6 % (11.5-14.5); WHITE BLOOD COUNT (AUTO) 8.3 K/uL (4.5-11.0)
[2024-02-20 00:25] LABS: ALCOHOL, URINE DRUG SCREEN NEGATIVE (NEGATIVE); AMPHET/METH SCREEN,URINE POSITIVE (NEGATIVE); BARBITURATE SCREEN, URINE NEGATIVE (NEGATIVE); BENZODIAZEPINES SCREEN,URINE NEGATIVE (NEGATIVE); CANNABINOID SCREEN,URINE NEGATIVE (NEGATIVE); COCAINE SCREEN,URINE NEGATIVE (NEGATIVE); METHADONE SCREEN, URINE NEGATIVE (NEGATIVE); OPIATE SCREEN,URINE NEGATIVE (NEGATIVE); PHENCYCLIDINE SCREEN,URINE NEGATIVE (NEGATIVE)
[2024-02-20 00:29] LABS: ANION GAP 6 mmol/L (8-16); CALCIUM, TOTAL 8.9 mg/dL (8.8-10.5); CARBON DIOXIDE 28 mmol/L (22-29); CHLORIDE 106 mmol/L (98-107); CREATININE 0.91 mg/dL (0.60-1.30); GLOMERULAR FILTR. RATE CALC > 60 mL/min (>60); GLUCOSE,RANDOM 118 mg/dL (70-110); POTASSIUM 3.5 mmol/L (3.5-5.1); SODIUM SERUM 140 mmol/L (136-145); UREA NITROGEN, BLOOD 11 mg/dL (7-18)
[2024-02-20 00:36] LABS: ALCOHOL, BLOOD (SERUM) < 3 mg/dL (0-10)
[2024-02-20] MEDS: OLANZapine 5 MG TABLET PO ONE (01:27)
[2024-02-20 05:27] VITALS: BP 146/80; PULSE 92; RESP 18; TEMP 98.4
== END 2024-02-20 05:32 | disposition home or self-care (01) ==
LOC: EMS 20:09
DX: F15.10 Other stimulant abuse, uncomplicated (principal); E11.9 Type 2 diabetes mellitus without complications; J45.909 Unspecified asthma, uncomplicated; F41.9 Anxiety disorder, unspecified; F20.9 Schizophrenia, unspecified; F32.A Depression, unspecified; F17.210 Nicotine dependence, cigarettes, uncomplicated; F12.90 Cannabis use, unspecified, uncomplicated
CPT/HCPCS: 99283; 80048; 85025; 36415; 80307; G0480